=== PATIENT | female | born 1940 | race Caucasian/White ===

== ENCOUNTER 2017-12-21 21:41 | Emergency (ER) | payer OTHER ==
[2017-12-22 00:57] LABS: Urine Appearance TURBID; Urine Blood 3+ (NEG); Urine Color RED; Urine Glucose NEGATIVE (NEG); Urine Protein 3+ (NEG); Urine Specific Gravity 1.015 (1.005-1.030); Urine Urobilinogen 0.2 mg/dL (0.2-1.0); Urine pH 7.5 (5.0-7.0)
[2017-12-22 01:04] LABS: Bilirubin Direct 0.2 mg/dL (0-0.2); Bilirubin Total 0.4 mg/dL (0.2-1.0); Protein, Total 6.4 g/dL (6.4-8.2)
[2017-12-22 01:05] LABS: Potassium 5.7 mmol/L (3.5-5.1)
[2017-12-22 01:17] LABS: Urine Bilirubin NEGATIVE (NEG)
[2017-12-22 01:20] LABS: Urine Bacteria <20 /HPF (<20); Urine Culture Reflex Order REFLEXED; Urine RBC TNTC /HPF (NONE SEEN)
[2017-12-22 01:27] LABS: Absolute Lymphocytes (CBC) 1.4 K/uL (0.7-4.9); Absolute Monocytes 0.6 K/uL (0.1-1.3); Absolute Neutrophil 4.1 K/uL (1.8-8.0); Basophils % 0.9 % (0-1.3); Eosinophils % 3.4 % (0-4.4); Hematocrit 40.3 % (36.0-45.0); Lymphocytes % 21.6 % (15.3-44.8); MCH 32.4 pg (27.0-35.0); MCV 96.1 fL (80-100); Monocytes % 9.2 % (3.3-12.3)
--- NOTE | 2017-12-22 02:28 | ER ---
Nurse's Notes 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 Family states pt's bleeding worsened today. Transition of care: patient was not received from another setting of care. Onset of symptoms was September 2017. Risk Assessment: Do you want to hurt yourself or someone else? Patient reports no desire to harm self or others. Initial Sepsis Screen: Does the patient meet any 2 criteria? No. Patient's initial sepsis screen is negative. Does the patient have a suspected source of infection? No. Patient's initial sepsis screen is negative. Care prior to arrival: None. 22:14 Method Of Arrival: Wheelchair bb 22:14 Acuity: DEE 3 bb Historical: - Allergies: 22:22 Sulfa (Sulfonamide Antibiotics); bb 22:22 Cipro; bb - Home Meds: 22:22 Unable to obtain [Active]; bb - PMHx: 22:22 ESRD; Seizures; polycystic liver and kidneys; melanoma; CVA; bb - PSHx: 22:22 Hysterectomy; Cholecystectomy; Liver dissection; melanoma removed; gastric tumor bb removed; right lymph nodes removed; - Immunization history:: Adult Immunizations up to date. - Social history:: Smoking status: Patient/guardian denies using tobacco. - Ebola Screening: : No symptoms or risks identified at this time. Screenin:09 Abuse screen: Denies threats or abuse. Denies injuries from another. Nutritional lp1 screening: No deficits noted. Tuberculosis screening: No symptoms or risk factors identified. Fall Risk Total Ferro Fall Scale indicates High Risk Score (45 or more points). Fall prevention measures have been instituted. Side Rails Up X 2 Family Present and informed to notify staff if the need to leave the bedside As available patient and family educated on Fall Prevention Program and Strategies. Assessment: 22:30 General: Appears in no apparent distress. Behavior is appropriate for age. Pain: Denies lp1 pain. 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 Cardiovascular: Patient's skin is warm and dry. Dialysis shunt: in the right bicep. Respiratory: Respiratory effort is even, unlabored, Breath sounds are clear bilaterally. GI: Abdomen is non-distended, Abd is soft and non tender X 4 quads. : Reports vaginal bleeding that is bright red. EENT: No signs and/or symptoms were reported regarding the EENT system. Derm: Skin is intact, Skin is dry, Skin is normal. Musculoskeletal: Range of motion: intact in all extremities. 23:40 Reassessment: Unable to obtain peripheral IV access; Lab notified of blood draw. lp1 12/22 00:37 Reassessment:. General: Appears in no apparent distress. Behavior is calm. : Urine is lp1 blood tinged, noted during straight cath Vaginal discharge is white. : Reports burning with urination. 01:36 Reassessment: Patient appears in no apparent distress at this time. Patient and/or lp1 family updated on plan of care and expected duration. Pain level reassessed. Patient is alert, oriented x 3, equal unlabored respirations, skin warm/dry/pink. Provider at bedside to discuss results with patient and family. 02:30 Reassessment: Patient appears in no apparent distress at this time. Patient is alert, lp1 oriented x 3, equal unlabored respirations, skin warm/dry/pink. Patient and family aware of pending discharge. 02:54 Reassessment: Patient drinking Kayexalate at this time. lp1 Vital Signs: 12/21 22:22 BP 129 / 48; Pulse 88; Resp 16 S; Temp 98.9(O); Pulse Ox 97% on R/A; Weight 88 kg (R); bb Height 5 ft. 2 in. (157.48 cm) (R); Pain 0/10; 23:30 BP 138 / 55; Pulse 85; Resp 18; Pulse Ox 98% on R/A; lp1 12/22 00:30 BP 124 / 53; Pulse 82; Resp 18; Pulse Ox 96% on R/A; lp1 01:30 BP 139 / 59; Pulse 82; Resp 18; Pulse Ox 97% on R/A; lp1 02:30 BP 140 / 61; Pulse 79; Resp 18; Pulse Ox 96% on R/A; lp1 12/21 22:22 Body Mass Index 35.48 (88.00 kg, 157.48 cm) bb ED Course: 12/21 21:42 Patient arrived in ED. es 22:09 Darrin Lang NP is PHCP. pm1 22:09 Seth Muse MD is Attending Physician. pm1 22:20 Triage completed. bb 22:22 Arm band placed on. Family accompanied patient. bb 23:03 Nancy Hampton, AKHIL is Primary Nurse. lp1 23:09 Patient has correct armband on for positive identification. Bed in low position. Call lp1 light in reach. Side rails up X2. Pulse ox on. NIBP on. 23:13 Abdomen In Process Unspecified. EDMS 23:14 CT completed. Patient tolerated procedure well. Patient moved back from CT. kw1 23:43 Missed attempt(s): 24 gauge in left hand. wrist. Bleeding controlled, band aid applied, bb catheter tip intact. 12/22 00:37 Straight cath inserted, using sterile technique, 16 Fr. Specimen obtained. lp1 01:34 EKG done, by ED staff, reviewed by Darrin Lang NP. lp1 02:53 No provider procedures requiring assistance completed. Patient did not have IV access lp1 during this emergency room visit. Administered Medications: 02:45 Drug: Rocephin (cefTRIAXone) 1 grams Route: IM; Site: left gluteus; lp1 03:19 Follow up: Response: No adverse reaction lp1 02:52 Drug: Kayexalate 30 grams Route: PO; lp1 03:19 Follow up: Response: No adverse reaction lp1 Point of Care Testing: Blood Glucose: 12/21 22:53 Blood Glucose: 80 mg/dL; aa1 Ranges: Outcome: 12/22 02:28 Discharge ordered by . pm1 02:59 Discharged to home via wheelchair, with family. lp1 02:59 Condition: good 02:59 Discharge instructions given to patient, family, Instructed on discharge instructions, follow up and referral plans. medication usage, Demonstrated understanding of instructions, follow-up care, medications, Prescriptions given X 2. 03:20 Patient left the ED. lp1 Signatures: Dispatcher [employer] Roselyn Tyler RN RN aa1 Nicole Kendall Brenda, RN RN bb Nancy Hampton RN RN lp1 Darrin Lang NP CLINICAL VETERINARIAN pm1 Savanah Monreal
--- NOTE | 2017-12-22 02:29 | EDPHYS ---
Physician Documentation [facility] Name: Rebecca Belcher Age: 77 yrs Sex: Female : 1940 Arrival Date: 12/21/2017 Time: 21:42 Bed 4 Private MD: ED Physician Seth Muse HPI: 12/22 00:00 This 77 yrs old Female presents to ER via Wheelchair with complaints of pm1 Vaginal Bleeding. 00:00 The patient presents with vaginal bleeding that is moderate, that has resolved. Onset: pm1 The symptoms/episode began/occurred last night. Modifying factors: The symptoms are alleviated by nothing, the symptoms are aggravated by nothing. Associated signs and symptoms: Pertinent negatives: cramping, diarrhea, dysuria, fever, nausea, vomiting. Severity of symptoms: in the emergency department the symptoms have resolved. The patient is not sexually active. The patient has experienced a previous episode, approximately 1 months ago. Patient presents today with complaints of vaginal bleeding. Patient was sleeping and woke up in bed with blood in her diaper. Patient believes the blood came from her vaginal since she had a similar episode about 1 month ago and had a CT scan from her PCP that reported a possible vaginal fistula. Patient has not followed up with her cyber security systems engineer yet as recommended by PCP. Patient with history of CVA, left sided weakness and is on dialysis due to polycystic kidney disease. Patient is on vacation here and currently getting dialysis TThS at [facility] at 15:00. Patient without any other complaint than the resolved vaginal bleeding. Historical: - Allergies: 12/21 22:22 Sulfa (Sulfonamide Antibiotics); bb 22:22 Cipro; bb - Home Meds: 22:22 Unable to obtain [Active]; bb - PMHx: 22:22 ESRD; Seizures; polycystic liver and kidneys; melanoma; CVA; bb - PSHx: 22:22 Hysterectomy; Cholecystectomy; Liver dissection; melanoma removed; gastric tumor bb removed; right lymph nodes removed; - Immunization history:: Adult Immunizations up to date. - Social history:: Smoking status: Patient/guardian denies using tobacco. - Ebola Screening: : No symptoms or risks identified at this time. ROS: 12/22 00:00 Positive for vaginal bleeding, Negative for urinary symptoms. pm1 Constitutional: Negative for fever, chills, and weight loss, Eyes: Negative for injury, pain, redness, and discharge, ENT: Negative for injury, pain, and discharge, Neck: Negative for injury, pain, and swelling, Cardiovascular: Negative for chest pain, palpitations, and edema, Respiratory: Negative for shortness of breath, cough, wheezing, and pleuritic chest pain, Abdomen/GI: Negative for abdominal pain, nausea, vomiting, diarrhea, and constipation, Back: Negative for injury and pain, MS/Extremity: Negative for injury and deformity, Skin: Negative for injury, rash, and discoloration. Neuro: Positive for Baseline left sided weakness from CVA, Negative for altered mental status, dizziness, headache. Exam: 00:00 Constitutional: This is a well developed, well nourished patient who is awake, alert, pm1 and in no acute distress. Head/Face: Normocephalic, atraumatic. Eyes: Pupils equal round and reactive to light, extra-ocular motions intact. Lids and lashes normal. Conjunctiva and sclera are non-icteric and not injected. Cornea within normal limits. Periorbital areas with no swelling, redness, or edema. ENT: Nares patent. No nasal discharge, no septal abnormalities noted. Tympanic membranes are normal and external auditory canals are clear. Oropharynx with no redness, swelling, or masses, exudates, or evidence of obstruction, uvula midline. Mucous membranes moist. Neck: Trachea midline, no thyromegaly or masses palpated, and no cervical lymphadenopathy. Supple, full range of motion without nuchal rigidity, or vertebral point tenderness. No Meningismus. Chest/axilla: Normal chest wall appearance and motion. Nontender with no deformity. No lesions are appreciated. Cardiovascular: Regular rate and rhythm with a normal S1 and S2. No gallops, murmurs, or rubs. No pulse deficits. Respiratory: Lungs have equal breath sounds bilaterally, clear to auscultation and percussion. No rales, rhonchi or wheezes noted. No increased work of breathing, no retractions or nasal flaring. Abdomen/GI: Soft, non-tender, with normal bowel sounds. No distension or tympany. No guarding or rebound. No evidence of tenderness throughout. Back: No spinal tenderness. No costovertebral tenderness. Full range of motion. Skin: Warm, dry with normal turgor. Normal color with no rashes, no lesions, and no evidence of cellulitis. MS/ Extremity: Pulses equal, no cyanosis. Neurovascular intact. Full, normal range of motion. 00:40 : May RN present. Patient without bleeding present from vagina or rectum. Gonzales pm1 catheter placed by RN with gross hematuria. Vital Signs: 12/21 22:22 BP 129 / 48; Pulse 88; Resp 16 S; Temp 98.9(O); Pulse Ox 97% on R/A; Weight 88 kg (R); bb Height 5 ft. 2 in. (157.48 cm) (R); Pain 0/10; 23:30 BP 138 / 55; Pulse 85; Resp 18; Pulse Ox 98% on R/A; lp1 12/22 00:30 BP 124 / 53; Pulse 82; Resp 18; Pulse Ox 96% on R/A; lp1 01:30 BP 139 / 59; Pulse 82; Resp 18; Pulse Ox 97% on R/A; lp1 02:30 BP 140 / 61; Pulse 79; Resp 18; Pulse Ox 96% on R/A; lp1 12/21 22:22 Body Mass Index 35.48 (88.00 kg, 157.48 cm) bb MDM: 12/21 22:09 Patient medically screened. pm1 12/22 02:27 Data reviewed: vital signs. Data interpreted: Pulse oximetry: on room air is 97 %. pm1 Interpretation: normal. Counseling: I had a detailed discussion with the patient and/or guardian regarding: the historical points, exam findings, and any diagnostic results supporting the discharge/admit diagnosis, lab results, radiology results, the need for outpatient follow up, to return to the emergency department if symptoms worsen or persist or if there are any questions or concerns that arise at home. 02:27 ED course: Patient with scheduled dialysis treatment today at 1500. No EKG changes pm1 present with hyperkalemia. Patient reports current value is better than her level on Thursday which was 6.1 prior to dialysis. Patient is not aware of potassium restricted dietary guidelines. Patient is here on vacation and is incidentally eating a high potassium diet. Educated patient and ordered Kayexalate. Patient does not want to stay in the hospital for dialysis treatment since she has her schedule appointment later today. Will discharge patient home to get dialysis treatment at [facility]. 12/21 22:20 Order name: Creatinine for Radiology; Complete Time: 01:14 pm1 12/21 22:20 Order name: Basic Metabolic Panel; Complete Time: 01:05 pm1 12/21 22:20 Order name: CBC with Diff; Complete Time: 01:40 pm1 12/21 22:20 Order name: Hepatic Function; Complete Time: 01:05 pm1 12/21 23:03 Order name: Abdomen EDAL 12/22 00:51 Order name: Urinalysis W/Microscopic; Complete Time: 01:22 EDAL 12/22 01:14 Order name: EKG; Complete Time: 01:14 pm1 12/22 01:21 Order name: Urine Culture [facility] 12/21 22:20 Order name: Labs collected and sent; Complete Time: 00:46 pm1 12/21 22:20 Order name: Urine Dipstick-Ancillary (obtain specimen); Complete Time: 00:48 pm1 12/22 01:14 Order name: EKG - Nurse/Tech; Complete Time: 01:37 pm1 Administered Medications: 02:45 Drug: Rocephin (cefTRIAXone) 1 grams Route: IM; Site: left gluteus; lp1 03:19 Follow up: Response: No adverse reaction lp1 02:52 Drug: Kayexalate 30 grams Route: PO; lp1 03:19 Follow up: Response: No adverse reaction lp1 Point of Care Testing: Blood Glucose: 12/21 22:53 Blood Glucose: 80 mg/dL; aa1 Ranges: Critical Glucose Levels:Adult <50 mg/dl or >400 mg/dl <40 mg/dl or >180 mg/dl Disposition: 12/22 07:19 Co-signature as Attending Physician, Seth Muse MD. Disposition: 12/22/17 02:28 Discharged to Home. Impression: Urinary tract infection, site not specified. - Condition is Stable. - Discharge Instructions: Urinary Tract Infection, Adult. - Prescriptions for Augmentin 500- 125 mg Oral Tablet - take 1 tablet by ORAL route once daily for 10 days Administer additional dose during and at the end of dialysis; 20 tablet. Diflucan 150 mg Oral Tablet - take 1 tablet by ORAL route one time for 1 day; 1 tablet. - Medication Reconciliation Form, Thank You Letter, Antibiotic Education form. - Follow up: Emergency Department; When: As needed; Reason: Worsening of condition. Follow up: Private Physician; When: 2 - 3 days; Reason: Recheck today's complaints, Continuance of care, Re-evaluation by your physician. - Problem is new. - Symptoms have improved. Signatures: Dispatcher [employer] [facility] Nohemi Nolan RN RN bb Nancy Hampton RN RN lp1 Darrin Lang, BOAT ENGINE MECHANIC BOAT ENGINE MECHANIC pm1 Seth Muse MD MD gs Corrections: (The following items were deleted from the chart) 12/21 23:03 22:20 Abdomen Pelvis W Con+CT.RAD.BRZ ordered. [facility] 12/22 00:50 00:49 URINALYSIS+U.LAB.BRZ ordered. [facility] 00:51 00:35 UA MICROSCOPIC+U.LAB.BRZ ordered. [facility] 02:28 02:28 12/22/2017 02:28 Discharged to Home. Impression: Urinary tract infection, site pm1 not specified. Condition is Stable. Discharge Instructions: Urinary Tract Infection, Adult, Hematuria, Adult. Prescriptions for Augmentin 500-125 mg Oral Tablet - take 1 tablet by ORAL route once daily for 10 days Administer additional dose during and at the end of dialysis; 20 tablet. and Forms are Medication Reconciliation Form, Thank You Letter, Antibiotic Education, Prescription Opioid Use. Follow up: Emergency Department; When: As needed; Reason: Worsening of condition. Follow up: Private Physician; When: 2 - 3 days; Reason: Recheck today's complaints, Continuance of care, Re-evaluation by your physician. Problem is new. Symptoms have improved. pm1 02:59 12/21 22:20 IV Saline Lock ordered. pm1 lp1 12/22 03:20 02:28 12/22/2017 02:28 Discharged to Home. Impression: Urinary tract infection, site lp1 not specified. Condition is Stable. Discharge Instructions: Urinary Tract Infection, Adult, Hematuria, Adult. Prescriptions for Augmentin 500-125 mg Oral Tablet - take 1 tablet by ORAL route once daily for 10 days Administer additional dose during and at the end of dialysis; 20 tablet. and Forms are Medication Reconciliation Form, Thank You Letter, Antibiotic Education, Prescription Opioid Use. Follow up: Emergency Department; When: As needed; Reason: Worsening of condition. Follow up: Private Physician; When: 2 - 3 days; Reason: Recheck today's complaints, Continuance of care, Re-evaluation by your physician. Problem is new. Symptoms have improved. pm1
[2017-12-22] MEDS ORDERED: CEFTRIAXONE 1000 MG/VIAL ONE (02:31)
[2017-12-22] MEDS ORDERED: SOD POLYSTYREN SUL 15 GM/60 ML UCUP ONE (02:32)
[2017-12-22] MEDS ORDERED: WATER FOR INJ,STERILE 10 ML ONE (02:32)
--- NOTE | 2017-12-22 06:49 | EKG ---
Test Date: 2017-12-22 Test Time: 01:27:47 Prefabricated Houses Trimmer: ABUNDIO MEASUREMENT RESULTS: Intervals: Rate: 82 NC: 146 QRSD: 86 QT: 408 QTc: 476 [place]: P: 46 NC: 146 QRS: -18 T: 43 INTERPRETIVE STATEMENTS: Normal sinus rhythm Normal ECG No previous ECG available for comparison Electronically Signed On 12-22-17 06:48:50 CDT by Masoud Ashby
--- NOTE | 2017-12-22 08:03 | RAD REPORT ---
EXAM DESCRIPTION: CT - Abdomen Pelvis Wo Contrast - 12/22/2017 7:08 am CLINICAL HISTORY: Abdominal pain vaginal bleeding. Of COMPARISON: None TECHNIQUE: Computed axial tomography of the abdomen and pelvis was obtained. IV and oral contrast we re not requested. A preliminary report was generated by [employer] and reviewed prior to this dictation All CT scans are performed using dose optimization technique as appropriate and may include automated exposure control or mA/KV adjustment according to patient size. FINDINGS: The evaluation of solid organs, vessels and bowel is limited secondary to the lack of con trast administration. Partial liver resection is present. Multiple hepatic cysts are seen. Calcification within the liver m ay be post treatment. Polycystic kidneys are present with innumerable cysts and little normal appearing renal parenchyma. A significant hemorrhage into a cyst is not seen. The spleen and adrenals appear grossly normal. The pancreas is atrophic. The appendix is normal. There is no evidence of diverticulitis Air within the vagina is not seen. Fluid is not noted. An old non healed left femoral fracture is present. IMPRESSION: Polycystic disease No acute abnormality is displayed
== END 2017-12-22 03:20 | disposition home or self-care (01) ==
LOC: ER 21:41
DX: N39.0 Urinary tract infection, site not specified (principal); N18.6 End stage renal disease; Z99.2 Dependence on renal dialysis; Z88.1 Allergy status to other antibiotic agents; Z88.2 Allergy status to sulfonamides; Z86.73 Personal history of transient ischemic attack (TIA), and cerebral infarction without residual deficits
CPT/HCPCS: 36415; 51702; 74176; 80048; 80076; 81001; 82962; 85025; 87077; 87086; 87088; 87186; 93005; 96372; 99284